=== PATIENT | female | born 1975 | race Caucasian/White ===

== ENCOUNTER → 2022-03-29 | Outpatient (CLI) | payer BC ==
--- NOTE | 2022-03-29 16:38 | US ---
EXAMINATION TYPE: US pelvis complete transvag DATE OF EXAM: 03/29/2022 COMPARISON: NONE CLINICAL HISTORY: 46-year-old female PELVIC PAIN. Patient states she does not have menstrual cycles. TECHNIQUE: Transvaginal (TV) and Transabdominal (TA) . Transabdominal sonographic images of the pel vis were acquired. Transvaginal sonographic images were medically necessary to better assess the fol lowing anatomy: Endometrium, ovaries Date of LMP: Unknown, EXAM MEASUREMENTS: Uterus: 7.3 x 4.1 x 3.2 cm Endometrial Stripe: Focally thickened at the fundus of 1.2 cm. Right Ovary: 2.2 x 1.3 x 1.1 cm Left Ovary: 2.2 x 1.5 x 1.1 cm 1. Uterus: Anteverted. The myometrium is mildly heterogenous 2. Endometrium: Focal thickening of the fundal endometrium up to 1.2 cm. Prominent echogenic foci ar e present within the area of thickening. 3. Right Ovary: echogenic lesion - 0.4 x 0.4 x 0.4 cm 4. Left Ovary: wnl 5. Bilateral Adnexa: bilateral peristalsing bowel 6. Posterior cul-de-sac: no free fluid IMPRESSION: 1. Focal thickening of the fundal endometrium up to 1.2 cm with multiple associated echogenic foci, p ossible calcifications. Considerations include a submucosal or intracavitary degenerative fibroid, la rge polyp, or other endometrial lesion. Consider endometrial biopsy, direct visualization, or hystero sonography. 2. A tiny 4 mm echogenic area in the right ovary could represent a small ovarian dermoid.
--- NOTE | 2022-03-29 19:06 | US ---
EXAMINATION TYPE: US abdomen complete DATE OF EXAM: 03/29/2022 COMPARISON: NONE CLINICAL HISTORY: 46-year-old female ABD PAIN. Abnormal labs. Patient states she had a fever of unkn own origin. EXAM MEASUREMENTS: Liver Length: 19.4 cm Gallbladder Wall: 0.2 cm CBD: 0.4 cm Spleen: 9.1 cm Right Kidney: 10.0 x 4.8 x 3.7 cm Left Kidney: 10.5 x 5.0 x 5.0 cm Pancreas: wnl Liver: wnl Gallbladder: wnl Evidence for sonographic Marshall's sign: neg CBD: wnl Spleen: wnl Right Kidney: There is dilatation of the renal pelvis measuring up to 2.2 x 2.1 x 1.3 cm. On leslie sverse images, this has the appearance of an extrarenal pelvis. Left Kidney: Echogenic focus at the mid pole measuring 4 mm. Medial anechoic lesion at hilum = 1.8 x 1.5 x 1.5 cm similar but smaller to the contralateral side. Upper IVC: wnl Abd Aorta: No AAA visualized at time of scan IMPRESSION: 1. Dilated renal pelvis versus extrarenal pelvis, right more so than the left. No calyceal dilatation to suggest vincent hydronephrosis. Unable to exclude developing hydronephrosis. Correlate with patient 's kidney function. Consider follow-up ultrasound to reassess the kidneys. If indicated, a contrast e nhanced CT can further evaluate. 2. A 4 mm nonobstructive left renal stone.
== END | disposition home or self-care (01) ==
LOC: RADUSWWP 09:30
PROVIDERS: ATTEND Nurse Practitioner Family
DX: N20.0 Calculus of kidney (principal); N83.8 Other noninflammatory disorders of ovary, fallopian tube and broad ligament
CPT/HCPCS: 76700; 76830; 76856